=== PATIENT | female | born 1985 | race Caucasian/White ===

== ENCOUNTER 2018-04-07 12:37 | Outpatient (CLI) | payer OTHER ==
[~2018-04-07 12:37] MED LIST: Iopamidol 370 76% 100 ML VIAL ONE
--- NOTE | 2018-04-07 14:50 | CT ---
CT OF THE BRAIN WITHOUT AND WITH CONTRAST: COMPARISON: None. HISTORY: Posttraumatic headache. TECHNIQUE: Multiple contiguous axial images were obtained in a CT of the brain without and with IV contrast. Sa gittal and coronal reformats were performed. FINDINGS: The brain is normal in morphology and attenuation without focal lesions or confluent areas of infarct ion. There is no evidence of hydrocephalus, intracranial hemorrhage, or extraaxial fluid collection. No abnormal enhancement is seen. The calvarium and overlying soft tissues are unremarkable. The visualized paranasal sinuses and mast oid air cells are well aerated. IMPRESSION: No evidence of acute intracranial abnormality. POS: [facility]
== END 2018-04-07 12:38 | disposition home or self-care (01) ==
LOC: BICCT 12:37
PROVIDERS: ATTEND Clinical Nurse Specialist Medical-Surgical
DX: G44.309 Post-traumatic headache, unspecified, not intractable (principal)
CPT/HCPCS: 70470

== ENCOUNTER 2019-01-17 07:51 | Outpatient (CLI) | payer OTHER ==
--- NOTE | 2019-01-17 09:03 | MRI ---
MRI lumbar spine noncontrast: HISTORY: Lumbar radiculopathy. Pain. COMPARISON: None FINDINGS: Appropriate T1 marrow signal intensity of the lumbar vertebra. Lumbar spine vertebral body height is maintained. No fracture. There are type I and type II Modic changes at the L5-S1 disc Appropriate signal intensity of the paraspinal muscles Appropriate signal intensity visualized solid organs Conus medullaris terminates at the inferior aspect of bowel T12-L1:Adequate disc hydration. No significant central canal stenosis or significant neural foraminal narrowing L1-L2:Adequate disc hydration. No significant central canal stenosis or significant neural foraminal narrowing L2-L3:Adequate disc hydration. Minimal right paracentral disc bulge. Minimal ligament flavum thickeni ng and facet hypertrophy. No significant canal stenosis. No significant neural foraminal narrowing. L3-L4:Adequate disc hydration. No significant posterior disc abnormality. Minimal ligament flavum thi ckening and facet hypertrophy. No significant central canal stenosis or significant neural foraminal narrowing. L4-L5:Desiccation with mild loss of disc space height. Broad-based disc bulge with a central and righ t subarticular disc protrusion. There is slight inferior disc extrusion the right subarticular zone. Partial obscuration traversing right L5 nerve root. Mild central canal stenosis. Minimal encroa chment upon the left subarticular zone secondary to disc material. No significant mass effect or contact upon the traversing left L5 nerve root. Moderate right neural foraminal narrowing. Mild left foraminal narrowing L5-S1:Desiccation with moderate loss of disc space height. Broad-based disc bulge with a central disc protrusion. Disc material encroaches upon both subarticular zones. No significant mass effect upon either traversing S1 nerve root. Mild right neural foraminal narrowing. Moderate to severe left neura l foraminal narrowing. Mild bilateral facet hypertrophy. Small amount of fluid in both facet joints. IMPRESSION: 1. Disc desiccation L4-L5 and L5-S1. 2. Partial obscuration traversing right L5 nerve root. Disc material encroaches upon the left articul ar zone at L4-L5 without significant mass effect upon the traversing left L5 nerve root. 3. Moderate to severe left neural foraminal narrowing at L5-S1. 4. Moderate right neural foraminal narrowing at L4-L5.
--- NOTE | 2019-01-17 09:14 | MRI ---
MRI THORACIC SPINE WITHOUT CONTRAST: HISTORY: Pain. COMPARISON: None. FINDINGS: The visualized mediastinum is unremarkable. No obvious masses or hematoma. Lung parenchyma is unremar kable. No retroperitoneal mass, lymphadenopathy or hematoma. The visualized solid organs are unremarkable. The thoracic cord has a normal size and signal intensity. No significant STIR hyperintensity to sugge st vertebral body edema or ligamentous injury. The thoracic cord has a normal size and signal intensity. No cord malacia. No cord expansion. The con us medullaris terminates at the inferior aspect of T12. T1-T2 through T7-T8: No significant posterior disc abnormality. T8-T9: Minimal central disc bulge. No significant central canal stenosis. T9-T10: Minimal posterior disc abnormality. No significant central canal stenosis. T10-T11: Central/left paracentral disc protrusion. There is contact and deformity upon the left hemic ord. Mild to moderate central canal stenosis. No cord signal abnormality. T11-T12: Minimal left paracentral disc bulge. No significant central canal stenosis. T12-L1: No significant central canal stenosis. Throughout the thoracic spine, neural foramina are patent. IMPRESSION: Mild to moderate central canal stenosis at T10-T11. Transcribed Date/Time: 01/17/2019 9:42 AM
== END 2019-01-17 07:52 | disposition home or self-care (01) ==
LOC: TBSIIMAG 07:51
PROVIDERS: ATTEND Nurse Practitioner Family
DX: M51.16 Intervertebral disc disorders with radiculopathy, lumbar region (principal); M54.6 Pain in thoracic spine; M51.87 Other intervertebral disc disorders, lumbosacral region; M48.061 Spinal stenosis, lumbar region without neurogenic claudication; M48.07 Spinal stenosis, lumbosacral region; M48.04 Spinal stenosis, thoracic region
CPT/HCPCS: 72146; 72148

== ENCOUNTER 2020-05-14 11:41 | Emergency (ER) | payer OTHER ==
[2020-05-14] MEDS ORDERED: HYDROcodone/Acetaminophen 10/325 mg Tablet ONE (12:06)
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
== END 2020-05-14 13:32 | disposition home or self-care (01) ==
LOC: EEVIPCON 11:41 → ERS 11:41
DX: S06.0X0A Concussion without loss of consciousness, initial encounter (principal); S16.1XXA Strain of muscle, fascia and tendon at neck level, initial encounter; S40.021A Contusion of right upper arm, initial encounter; I10 Essential (primary) hypertension; F17.210 Nicotine dependence, cigarettes, uncomplicated; Y04.2XXA Assault by strike against or bumped into by another person, initial encounter
CPT/HCPCS: 70450; 72125

== ENCOUNTER 2020-06-01 22:19 | Emergency (ER) | payer OTHER ==
[2020-06-01] MEDS ORDERED: Lorazepam 2 MG/ML VIAL ONE (22:33)
== END 2020-06-02 00:08 | disposition home or self-care (01) ==
LOC: ERS 22:19
DX: F41.0 Panic disorder [episodic paroxysmal anxiety] (principal); I10 Essential (primary) hypertension; F17.210 Nicotine dependence, cigarettes, uncomplicated
CPT/HCPCS: 96374; J2060

== ENCOUNTER 2024-02-21 15:30 | Outpatient (CLI) | payer OTHER | END 2024-02-21 15:31 | disposition home or self-care (01) | LOC: BICRAD 15:30 | PROVIDERS: ATTEND Nurse Practitioner Family | DX: M54.42 Lumbago with sciatica, left side (principal); M47.816 Spondylosis without myelopathy or radiculopathy, lumbar region; M47.817 Spondylosis without myelopathy or radiculopathy, lumbosacral region; M16.12 Unilateral primary osteoarthritis, left hip | CPT/HCPCS: 72100 ==

== ENCOUNTER 2025-01-10 16:31 | Emergency (ER) | payer BC, OTHER, MEDICAID ==
[2025-01-10] MEDS ORDERED: Boostrix 0.5 ML (Tdap) VIAL (>/=7 yrs of age) ONE (16:37)
[2025-01-10 16:48] LABS: #Basophils 0.08 10x3/uL (0.0-0.2); #Eosinophils 0.09 10x3/uL (0.0-0.7); #Monocytes 0.70 10x3/uL (0.11-0.59); #Neutrophils 10.83 10x3/uL (1.40-6.50); %Basophils 0.5 % (0.0-1.0); %Eosinophils 0.6 % (0.0-10.0); %Lymphocytes 24.4 % (21.0-51.0); %Monocytes 4.5 % (0.0-10.0); %Neutrophils 69.3 % (42.0-75.0); Hematocrit 35.1 % (36.0-47.0); Hemoglobin 11.8 g/dL (12.0-16.0); Mean Corpuscular Hemoglobin 30.7 pg (27.0-31.0); Mean Corpuscular Volume 91.4 fL (78.0-98.0); Platelet Count 287 10x3/uL (130-400); Red Blood Cell (RBC) Count 3.84 mill/uL (4.20-5.40); White Blood Cell (WBC) Count 15.63 10x3/uL (4.8-10.8)
[2025-01-10 17:02] LABS: INR-International Normal Ratio 1.1; Prothrombin Time 14.5 sec (12.0-14.7)
[2025-01-10 17:03] LABS: PTT 33.4 sec (22.9-36.1)
[2025-01-10 17:20] LABS: ALT (SGPT) 80 U/L (Less than 34); AST (SGOT) 144 U/L (11-34); Albumin 3.7 g/dL (3.1-4.5); Alkaline Phosphatase 54 U/L (40-110); Anion Gap 14 mmol/L (10-20); BUN (Urea Nitrogen) 16 mg/dL (7.0-18.7); Bilirubin, Total 0.6 mg/dL (0.3-1.2); Calc. Creatinine Clearance 0 mL/min (70-130); Calcium 8.9 mg/dL (7.8-10.44); Carbon Dioxide 20 mmol/L (22-29); Chloride 105 mmol/L (98-107); Globulin 3.1 g/dL (2.4-3.5); Glucose 116 mg/dL (70-105); Potassium 3.7 mmol/L (3.5-5.1); Sodium 135 mmol/L (136-145)
[2025-01-10] MEDS ORDERED: Ketorolac Tromethamine 30 MG (1 mL) VIAL ONE (18:32)
== END 2025-01-10 19:00 | disposition home or self-care (01) ==
LOC: ERS 16:31
DX: S82.832A Other fracture of upper and lower end of left fibula, initial encounter for closed fracture (principal); S27.321A Contusion of lung, unilateral, initial encounter; S80.12XA Contusion of left lower leg, initial encounter; S80.11XA Contusion of right lower leg, initial encounter; S70.211A Abrasion, right hip, initial encounter; Z23 Encounter for immunization; F17.210 Nicotine dependence, cigarettes, uncomplicated; F17.290 Nicotine dependence, other tobacco product, uncomplicated; V89.2XXA Person injured in unspecified motor-vehicle accident, traffic, initial encounter
CPT/HCPCS: 27781; 70450; 70498; 71045; 71260; 72125; 72170; 74177; 80053; 85610; 85730; 86850; 86900; 86901; 90471; 90715; 93005; 96374; 96375; G0390; J1885; J2270; J3010